=== PATIENT | female | born 1980 | race Caucasian/White ===

== ENCOUNTER 2016-08-06 11:23 | Emergency (ER) | payer OTHER ==
[~2016-08-06] VITALS: Ht 165.1 cm; Wt 61.2 kg
--- NOTE | ~2016-08-06 | EKG ---
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
[2016-08-06 11:41] LABS: ABG SAMPLE TYPE ARTERIAL; BE(vivo) -22.8 mmol/L (-2 to +3); HCO3 10.9 mmol/L (22.0-26.0); O2(CT) 11.9 mL/dL (15.0-23.0); O2Hb 90.2 % (92.0-98.0); PO2 108.9 mmHg (80.0-100.0); sO2 91.4 % (92.0-98.0); tCO2 13.1 mmol/L (24.0-30.0)
[2016-08-06 11:42] LABS: LACTATE 16.48 mmol/L (0.5-2.0); STICK SITE L.RADIAL; TIDAL VOLUME 16 ml; pH 6.811 (7.360-7.450)
[2016-08-06 11:43] LABS: ABG COMMENT POST CODE BLUE
[2016-08-06 11:51] LABS: POC CA IONIZED 4.3 mg/dL (4.5-5.3); POC CREATININE 1.1 mg/dL (0.6-1.3); POC HEMOGLOBIN 8.8 g/dL (12.0-15.0); POC POTASSIUM 5.1 mmol/L (3.5-5.1)
[2016-08-06 11:56] LABS: HEMATOCRIT 27.4 % (37.0-47.0); HEMOGLOBIN 7.9 gm/dL (12.0-15.0); MCH 27.8 pg (26.0-34.0); MCHC 28.7 g/dL (28.0-37.0); MCV 96.9 fL (80.0-100.0); PLATELET COUNT 181 thou/uL (150-400); RBC 2.83 mil/uL (4.20-5.00); RDW 18.6 % (10.5-14.5); WBC 36.8 thou/uL (4.0-11.0)
[2016-08-06 11:58] LABS: MANUAL DIFF YES
[2016-08-06 11:59] LABS: URINE BILIRUBIN NEGATIVE (Negative); URINE BLOOD 2+ (Negative); URINE COLOR YELLOW; URINE GLUCOSE-RANDOM* TRACE (Negative); URINE KETONES NEGATIVE (Negative); URINE NITRITE NEGATIVE (Negative); URINE PROTEIN (DIPSTICK) 3+ (Negative); URINE SPECIFIC GRAVITY >= 1.030 (1.003-1.035); URINE UROBILINOGEN 0.2 E.U./dl (0.2-1.0)
[2016-08-06 12:00] LABS: CALCIUM 7.7 mg/dL (8.5-10.1); CREATININE 1.4 mg/dL (0.6-1.0); POTASSIUM 5.2 mmol/L (3.5-5.1)
[2016-08-06 12:03] LABS: INR 1.2; PROTIME 12.6 Seconds (9.3-11.4)
[2016-08-06 12:07] LABS: CASTS None Seen /LPF (None Seen); SQUAMOUS 0-3 Few /LPF (0-3)
[2016-08-06 12:09] LABS: AMORPHOUS URATES Moderate /LPF (None Seen); BACTERIA >30 Many /HPF (None Seen); URINE WBC 6-15 Few /HPF (0-5)
[2016-08-06 12:11] LABS: ALBUMIN 1.9 g/dL (3.4-5.0); TOTAL BILIRUBIN 0.2 mg/dL (<0.1-1.0); TOTAL PROTEIN 4.8 g/dL (6.4-8.2); TROPONIN-I 0.2 ng/mL (<0.04-0.07)
[2016-08-06 13:05] LABS: ABSOLUTE NEUTROPHILS 30.5 thou/uL (1.4-8.2); METAMYELOCYTES 3 %; MYELOCYTES 3 %; TOTAL CELL COUNT 100
[2016-08-06 13:06] LABS: ANISOCYTOSIS 2+; OVALOCYTES FEW; POLYCHROMASIA OCCASIONAL
[2016-08-06 17:39] VITALS: BP 0/0
== END 2016-08-06 17:40 ==
LOC: ER 11:23
PROVIDERS: Emergency Medicine
DX: I46.9 Cardiac arrest, cause unspecified (principal)